=== PATIENT | male | born 1960 | race Caucasian/White ===

== ENCOUNTER 2018-11-27 11:26 | Day surgery (SDC) | payer BC ==
[2018-11-23 15:33] VITALS: BMI 32.1
--- NOTE | 2018-11-26 12:20 | HP ---
HISTORY AND PHYSICAL REASON FOR ADMISSION: Surgery scheduled for 11/27/2018 HISTORY OF PRESENT ILLNESS: Ken Daily is a 58-year-old patient seen with right shoulder adhesive capsulitis with history of previous arthroscopic rotator cuff repair. Options regarding treatment were discussed, he elected to proceed with manipulation under anesthesia right shoulder with steroid injection. Consent was obtained. PAST MEDICAL HISTORY: [id number] diabetes, hypertension. PAST SURGICAL HISTORY: Right shoulder arthroscopy, hand surgery, tonsillectomy. MEDICATIONS: Aspirin, glipizide, lisinopril. ALLERGIES: None. SOCIAL HISTORY: Denies current tobacco use. PHYSICAL EXAMINATION: Flexion is 120 degrees, abduction is 100 degrees, external rotation is 40 degrees. His arthroscopic portal sites appear well healed. His distal neurovascular exam is intact. RADIOGRAPHS: Radiographs of the right shoulder reveal stable conversion to a flat anterior acromion. IMPRESSION: 1. Right shoulder adhesive capsulitis. 2. History of right shoulder arthroscopic rotator cuff repair. PLAN: Manipulation under anesthesia right shoulder with steroid injection. Surgery scheduled for 11/27/2018. MMODL / IJN: [id number] /
[~2018-11-27 11:26] MED LIST: DEXAMETHASONE SOD PHOSPHATE 10 MG/ML 1 ML VIAL IV ONE; LACTATED RINGERS 1,000 ML IV SCH; MIDAZOLAM 2 MG/2 ML VIAL IV PRN; ONDANSETRON 4 MG/2 ML VIAL IVP ONE; SCOPOLAMINE 1.5MG/72HR PATCH TRANSDERM ONE; ceFAZolin IN SWFI 2 GM/20 ML SYRINGE IVP ONE
[2018-11-27 11:55] LABS: Glucose,Whole Blood 177 mg/dL (75-99)
[2018-11-27] MEDS ORDERED: LIDOCAINE 1% 20 ML VIAL (10MG/ML) FOR IV START INTRADERMA ONE (11:58)
[2018-11-27] MEDS ORDERED: HYDROmorphone (PF) 1 MG/ML ONE (12:18)
[2018-11-27] MEDS ORDERED: KETOROLAC 30 MG/ML 1 ML VIAL ONE (12:18)
[2018-11-27] MEDS ORDERED: GLYCOPYRROLATE 0.2 MG/ML 2 ML VIAL ONE (12:18)
[2018-11-27] MEDS ORDERED: MIDAZOLAM 2 MG/2 ML VIAL ONE (12:18)
[2018-11-27] MEDS ORDERED: PROPOFOL 10 MG/ML 20 ML VIAL IV ONE (12:18)
[2018-11-27] MEDS ORDERED: LIDOCAINE 1% INJ 10MG/ML (20 ML MDV) ONE (12:18)
[2018-11-27] MEDS ORDERED: fentaNYL (PF) 50 MCG/ML 2 ML AMP ONE (12:18)
[2018-11-27] MEDS ORDERED: methylPREDNISolone ACETATE 80 MG/ML 1 ML VIAL INJ ONE (12:48)
--- NOTE | 2018-11-27 12:51 | P.OP ---
Date of Procedure: 11/27/18 Preoperative Diagnosis: Right shoulder adhesive capsulitis Postoperative Diagnosis: Same Procedure(s) Performed: Manipulation under anesthesia right shoulder with steroid injection Anesthesia: MAC Surgeon: Kaiser Sheikh Estimated Blood Loss (ml): 0 Pathology: none sent Condition: stable Disposition: PACU Indications for Procedure: 58-year-old patient seen with persistent right shoulder adhesive capsulitis. After treatment options were discussed, he elected to proceed with manipulation under anesthesia with steroid injection Operative Findings: See description of procedure Description of Procedure: The patient was taken to a monitored anesthesia area. The patient underwent IV sedation by the department of anesthesia. Once sufficient anesthesia was noted a manipulation was performed to the right shoulder achieving near full range of motion with audible tearing of the adhesions. The anterior aspect of the right shoulder was now prepped and draped in the normal sterile orthopedic fashion. I injected 1 mL Depo-Medrol and 2 mL Marcaine intra-articular. The shoulder was again taken through range of motion. A sterile Band-Aid was applied. The patient tolerated the procedure well.
[2018-11-27] MEDS: HYDROmorphone 0.5 MG/0.5 ML SYRINGE IVP PRN ×2 (13:05→13:10)
[2018-11-27 13:17] VITALS: TEMP 97
[2018-11-27 13:29] VITALS: RESP 16
[2018-11-27 13:55] VITALS: BP 145/94; PULSE 57
== END 2018-11-27 14:15 | disposition home or self-care (01) ==
LOC: OR 11:26
PROVIDERS: ATTEND Orthopaedic Surgery
DX: M75.01 Adhesive capsulitis of right shoulder (principal); Z98.890 Other specified postprocedural states; E11.9 Type 2 diabetes mellitus without complications; I10 Essential (primary) hypertension; E78.5 Hyperlipidemia, unspecified; Z87.891 Personal history of nicotine dependence; H40.9 Unspecified glaucoma; Z79.84 Long term (current) use of oral hypoglycemic drugs; Z79.82 Long term (current) use of aspirin; Z79.899 Other long term (current) drug therapy
CPT/HCPCS: 23700; 20610; J2250; J1040; J2001; J3010; J1885; J1170 ×2; J2704